=== PATIENT | female | born 1955 | race Caucasian/White ===

== ENCOUNTER 2019-06-20 14:38 | Emergency (ER) | payer BC ==
[~2019-06-20] VITALS: Ht 162.6 cm; Wt 76.2 kg
--- NOTE | 2019-06-20 14:52 | NUR ---
Patient to ER bed 04 to gown for evaluation. Side rails up.
[2019-06-20 14:53] VITALS: BP_SYST 159
--- NOTE | 2019-06-20 15:00 | NUR ---
pt arrives via BLS d/t increasing generalized weakness. Pt does report having diarrhea. No other c/o at the moment
[2019-06-20] MEDS ORDERED: DIPHENOXYLATE HCL/ATROP SULF 2.5 MG TAB PO ONE (15:15)
[2019-06-20] MEDS ORDERED: NACL 0.9% 1,000 ML IV ONE (15:15)
--- NOTE | 2019-06-20 15:15 | NUR ---
# 20 gauge angiocath placed to LAC. Use of asceptic technique. Opsite placed over site. Blood return noted. Blood for lab drawn from site. Flushed with 10 cc of normal saline. No evidence of infiltration noted. Patient tolerated well.
--- NOTE | 2019-06-20 15:18 | NUR ---
ER at bedside examining patient.
--- NOTE | 2019-06-20 15:30 | NUR ---
NS bolus currently infusing per MD order
[2019-06-20 15:44] LABS: BASOPHILS % (AUTO) 0.3 % (0.0-2.0); EOSINOPHILS # (AUTO) 0.1 K/uL (0.0-0.4); EOSINOPHILS % (AUTO) 1.1 % (0.0-4.0); HEMATOCRIT 42.8 % (36-48); HEMOGLOBIN 14.1 g/dL (12.0-16.0); LYMPHOCYTES # (AUTO) 1.2 K/uL (1.0-5.5); LYMPHOCYTES % (AUTO) 20.7 % (20.5-51.5); MEAN CORPUSCULAR HEMOGLOBIN 30 pg (27-31); MEAN CORPUSCULAR HGB CONC 33 % (32-36); MEAN CORPUSCULAR VOLUME 93 fL (79.0-98.0); MONOCYTES # (AUTO) 0.4 K/uL (0.0-1.0); MONOCYTES % (AUTO) 6.3 % (1.7-9.3); NEUTROPHILS # (AUTO) 4.1 K/uL (1.8-7.7); NEUTROPHILS % (AUTO) 71.6 % (40.0-70.0); PLATELET COUNT (AUTO) 213 K/uL (130-430); RED BLOOD CELL COUNT(AUTO) 4.63 MIL/uL (4.2-6.2); RED CELL DISTRIBUTION WIDTH 14.5 % (9.0-15.0); WHITE BLOOD COUNT (AUTO) 5.8 K/uL (4.8-10.8)
[2019-06-20 15:57] LABS: CALCIUM 9.3 mg/dL (8.4-11.0); CREATININE 0.59 mg/dL (0.55-1.30); POTASSIUM 3.6 mmol/L (3.5-5.1)
[2019-06-20 16:05] LABS: ALBUMIN 3.9 g/dL (3.4-4.8); TOTAL BILIRUBIN 0.4 mg/dL (0.0-1.0)
--- NOTE | 2019-06-20 16:53 | NUR ---
Patient given written and verbal discharge instructions and verbalizes understanding. ER MD discussed with patient the results and treatment provided. Patient in stable condition. ID arm band removed. IV catheter removed intact and dressing applied, no active bleeding. Rx of Lomitil and Bactrim given. Patient educated on pain management and to follow up with PMD. Pain Scale 0/10. Opportunity for questions provided and answered. Medication side effect fact sheet provided.
[2019-06-20 16:55] VITALS: BP_SYST 159
== END 2019-06-20 16:55 | disposition home or self-care (01) ==
LOC: SED 14:38
DX: K52.9 Noninfective gastroenteritis and colitis, unspecified (principal); I10 Essential (primary) hypertension
CPT/HCPCS: 36415; 80053; 83690; 85025; 96360; 99283; J7030

== ENCOUNTER 2019-06-24 17:18 | Emergency (ER) | payer BC ==
[~2019-06-24] VITALS: Ht 157.5 cm; Wt 68.0 kg
[2019-06-24 17:23] VITALS: BP_SYST 162
== END 2019-06-24 18:20 | disposition left against medical advice (07) ==
LOC: SED 17:18
DX: R53.1 Weakness (principal); Z53.21 Procedure and treatment not carried out due to patient leaving prior to being seen by health care provider